=== PATIENT | female | born 1970 | race Caucasian/White ===

== ENCOUNTER 2019-04-11 14:05 | Outpatient (RCR) | payer OTHER, SELFPAY | END 2019-04-22 23:59 | LOC: NS 14:05 | PROVIDERS: Visit Provider Nurse Practitioner Primary Care | DX: E66.9 Obesity, unspecified (principal); Z68.33 Body mass index [BMI] 33.0-33.9, adult; Z71.3 Dietary counseling and surveillance | CPT/HCPCS: 97802 ==

== ENCOUNTER 2019-05-09 14:00 | Outpatient (RCR) | payer OTHER, SELFPAY | END 2019-05-22 23:59 | LOC: NS 14:00 | PROVIDERS: Visit Provider Nurse Practitioner Primary Care | DX: E66.9 Obesity, unspecified (principal); Z68.33 Body mass index [BMI] 33.0-33.9, adult; Z71.3 Dietary counseling and surveillance | CPT/HCPCS: 97803 ==

== ENCOUNTER 2019-06-06 09:00 | Outpatient (RCR) | payer OTHER, SELFPAY | END 2019-06-22 23:59 | LOC: NS 09:00 | PROVIDERS: Visit Provider Nurse Practitioner Primary Care | DX: E66.9 Obesity, unspecified (principal); Z68.33 Body mass index [BMI] 33.0-33.9, adult; Z71.3 Dietary counseling and surveillance | CPT/HCPCS: 97803 ==

== ENCOUNTER 2019-06-27 12:13 | Outpatient (RCR) | payer OTHER, SELFPAY | END 2019-06-27 23:59 | disposition home or self-care (01) | LOC: NS 12:13 | PROVIDERS: Visit Provider Nurse Practitioner Primary Care | DX: Z71.3 Dietary counseling and surveillance (principal); E66.9 Obesity, unspecified; Z68.33 Body mass index [BMI] 33.0-33.9, adult | CPT/HCPCS: 97803 ==

== ENCOUNTER 2019-11-01 07:30 | Day surgery (SDC) | payer OTHER, SELFPAY ==
[2019-11-01 08:07] VITALS: BP 117/75; PULSE 84; RESP 16; TEMP 36.6; O2SAT 97; BMI 35.3
[2019-11-01 08:09] LABS: Internal QC Validated? YES +Cl - CLEAR BKGD; Pregnancy, Urine Negative Negative
[2019-11-01] MEDS: Lactated Ringers 1,000 ML 100 ML IV (08:27)
--- NOTE | 2019-11-01 08:41 | H&P.OPEN ---
History of Present Illness Date of Admission: 11/01/19 The patient is a 49 year old F presents for screening colonoscopy. Patient is never had a previous colonoscopy. Denies any family history of colon cancer. Patient states she has bowel movements daily denies any blood. Denies any chronic abdominal pain/nausea/vomiting/reflux. Past Medical/Surgical History - Planned Operation Planned Operative Procedure/s: COLONOSCOPY Date of Operative Procedure: 11/01/19 Permit Signed: Yes S.O.S: No Is This Patient Having a Total Joint: No - Previous Hospitalizations/Surgeries HX Hospitalizations: No HX of Surgeries: GALLBLADDER. L ANKLE ARTHROSCOPY Any Problems With Anesthesia: No You/Your Family Experience Fever (Hyperthermia) With Anes: No Cholinesterase deficiency: No - Cardiovascular Hx Chest Pain within Last 2 months: No Hx of Irregular Heartbeat and/or Afib: No Hx Heart Attack: No Hx Congestive Heart Failure: No Hx Rheumatic Fever: No Hx Hypertension: No Hx Internal Defibrillator: No Hx Pacemaker: No Hx Cardiac Catheterization: No Hx Cardiac Surgery/Stents/Etc.: No Hx Stress Test: No HX Edema: No Hx Pain in Legs when Walking/Leg Cramps: No - Respiratory Chronic Cough: No HX of Shortness of Breath: No Hoarseness: No Hx Chronic Obstructive Pulmonary Disease (COPD): No Hx Asthma: No Hx Emphysema: No Hx Sleep Apnea: Yes CPAP: Yes BIPAP: No Hx Oxygen Use at Home: No Hx Respiratory Tract Infection/Cold (presently): No Result (for STOP score): Positive Hx Smoking: No Smoking Status: Never smoker - Gastrointestinal Hx Gastroesophageal Reflux: No Hx Gastrointestinal Disorders: No Hx Gastrointestinal Bleed: No Hx Ulcer: No Hx Hiatal Hernia: No Difficulty Chewing/Swallowing: No Recent Onset of Swallowing Problems: No Special diet followed at home: No Hx Unplanned Weight Loss of 20#: No HX Unplanned Weight Gain of 20#: No - Neurological Hx Seizures: No HX Syncope/Blackout Spells/Unconsciousness: No Hx CVA/Stroke: No Hx Transient Ischemic Attacks (TIA): No Hx Multiple Sclerosis: No Hx Parkinson's Disease: No Hx Head/Neck Injury: No Hx Headaches: No Hx Back Injury/Pain: No Recent Onset of Speech Difficulty: No Restless Legs: No Does patient have nerve stimulator: No - Blood Disorder Hx Leukemia: No Bleeding Tendencies: No Hx Deep Vein Thrombosis: No Hx High Cholesterol: No Blood Transmitted Disease: No Hx Hepatitis: No Hx Cirrhosis: No Hx Anemia: No Hx Blood Disorders: No - Reproduction : No Is Patient Lactating: No Hx Hysterectomy: No Hx Tubal Ligation: No Are You Post Menopause: No Pt Instructed Not To Have Any Sex From Now Until Surgery: No - Genitourinary Hx Renal Disease: No - Musculoskeletal Hx Arthritis: No Hx Rheumatoid Arthritis: No Hx Gout: No Recent Onset of an Orthopedic Problem: No - Endocrine Hx Diabetes: No Thyroid Disease: No Hx Steroid Therapy: No - Psycho/Social Hx Substance Use: No Hx Alcohol Use: No Hx Anxiety: Yes Hx Depression: Yes Mental Illness: No Hx Dementia: No - Miscellaneous Hx Cancer: No Recent Exposure to Contagious Disease: No Active MRSA: No Hx of C-Diff: No Any Loose Teeth: No Allergies Sulfa (Sulfonamide Antibiotics) Allergy (Verified 10/30/19 11:01) Itching - Discharge Is Pt Admitted From a Long-Term, or a Care Home: No Who Could Help: After D/C, Where Do you Plan to Go: Return Home - Physical Exam Vitals/I&O's: Vital Signs Temp Pulse Resp BP Pulse Ox 97.9 F 84 16 117/75 97 11/01/19 08:07 11/01/19 08:07 11/01/19 08:07 11/01/19 08:07 11/01/19 08:07 Oxygen Delivery Method Room Air Weight: 193 lb 5.526 oz Body Mass Index (BMI) 35.3 General: Alert, Oriented x3, Cooperative, No apparent distress HEENT: Atraumatic Lungs: Normal air movement Cardiovascular: Regular rate Abdomen: Soft, Non Tender, Non-Distended Extremities: No clubbing, No cyanosis, No edema Neurological: Cranial nerves II-XII grossly intact Psych/Mental Status: Normal Affect Laboratory Results 11/01/19 07:45: Urine Test Negative Current Medications Lactated Ringer's () 1,000 mls @ 100 mls/hr IV .Q10H KT Last Admin: 11/01/19 08:27 Dose: 100 mls/hr Documented by: Assessment/Plan 49-year-old female for screening colonoscopy Surgery Risks - Colonoscopy I discussed with the patient the risks of the procedure: Yes Risks Include but are not Limited To: Risks include but are not limited to: Bleeding, perforation requiring further surgery, inability to complete colonoscopy requiring barium enema. No further questions this time.
--- NOTE | 2019-11-01 08:45 | COLBX_PTH ---
PATIENT: KAYLYNN AGUILA LOC: EN U#:[id number] AGE/SX: 49/F ROOM: RE11/01/[address]: Dr. Vee Cornejo MD : 1970 BED: DIS: 11/01/2019 SPEC #: [id number] RECD: 11/01/19 10:42 STATUS: NEDA REMihir #: [id number] SOCORRO: 11/01/19 08:[address]: Vee Cornejo DEPT: SURGICAL PATHOLOGY RECD BY: Israel Duarte ENTERED: 11/01/19 12:06 SP TYPE: COLON BX OTHR DR: Dr. Ginger Agudelo MD Tissues: Ascending colon Procedures: Surgery Specimen Level IV HEADER OPERATION: Colonoscopy - open access (MAC) PRE-OP DIAGNOSIS: Screening TISSUE SUBMITTED: Ascending colon polyp biopsy MICROSCOPIC DIAGNOSIS Ascending colon polyp, biopsy: Fragments of hyperplastic polyp. AM:manpreet 11/02/19 MICROSCOPIC DESCRIPTION Slides are reviewed. GROSS DESCRIPTION Received in fixative is one container labeled with the patient's name and designated ascending colon polyp. The specimen consists of multiple irregular fragments of light viveros soft tissue that in aggregate measure 1 x 0.3 x 0.1 cm. The specimen is totally submitted in one cassette. / SJ:manpreet 11/01/19 TC:5 CPT: 20471
[2019-11-01 09:20] VITALS: BP 117/75; BP 95/58; PULSE 77; RESP 15; TEMP 36.1; O2SAT 98
--- NOTE | 2019-11-01 09:23 | OP.CCLET_ITS ---
11/01/2019 Ginger Agudelo [place] [id number] [place] [address] Re : Colonoscopy procedure for Awilda Jim Dear Dr. Agudelo This procedure was performed on Friday, November 01, 2019. My impressions and recommendations are as follows: Impressions : - Hemorrhoids found on perianal exam. - One less than 5 mm polyp in the ascending colon, removed with a cold biopsy forceps. Resected and retrieved. - The examination was otherwise normal. Recommendations : - Discharge patient to home. - Resume previous diet. - Continue present medications. - Await pathology results. - Repeat colonoscopy in 5 years for surveillance based on pathology results. My findings are described in the full procedure note, which is enclosed. If I can be of further assistance, please feel free to contact me at Doctor phone number(s): , Work: . Sincerely, MD Vee Damian MD 11/01/2019 9:22:38 AM This report has been signed electronically.
--- NOTE | 2019-11-01 09:23 | OP.COLON_ITS ---
Patient Name: Awilda Jim Procedure Date: 11/01/2019 8:49 AM Date of : 1970 Age: 49 Procedure: Colonoscopy Indications: Screening for colorectal malignant neoplasm Providers: Vee Cornejo MD Referring MD: Ginger Agudelo Medicines: Monitored Anesthesia Care Patient Profile: This is a 49 year old female. Last Colonoscopy: none. The patient's first colonoscopy is today. Complications: No immediate complications. Procedure: Pre-Anesthesia Assessment: - Prior to the procedure, a History and Physical was performed, and patient medications and allergies were reviewed. The patient's tolerance of previous anesthesia was also reviewed. The risks and benefits of the procedure and the sedation options and risks were discussed with the patient. All questions were answered, and informed consent was obtained. Prior Anticoagulants: The patient has taken no previous anticoagulant or antiplatelet agents. ASA Grade Assessment: II - A patient with mild systemic disease. After reviewing the risks and benefits, the patient was deemed in satisfactory condition to undergo the procedure. After I obtained informed consent, the scope was passed under direct vision. Throughout the procedure, the patient's blood pressure, pulse, and oxygen saturations were monitored continuously. The pediatric colonoscope was introduced through the anus and advanced to the cecum, identified by the appendiceal orifice, ileocecal valve and palpation. The colonoscopy was performed without difficulty. The patient tolerated the procedure well. The quality of the bowel preparation was good. Scope In: 8:55:21 AM Scope Withdrawal Time 0 hours 9 minutes 7 seconds Scope Out: 9:15:08 AM Total Procedure Duration Time 0 hours 19 minutes 47 seconds Findings: Hemorrhoids were found on perianal exam. A less than 5 mm polyp was found in the ascending colon. The polyp was sessile. The polyp was removed with a cold biopsy forceps. Resection and retrieval were complete. The exam was otherwise without abnormality. Impression: - Hemorrhoids found on perianal exam. - One less than 5 mm polyp in the ascending colon, removed with a cold biopsy forceps. Resected and retrieved. - The examination was otherwise normal. Recommendation: - Discharge patient to home. - Resume previous diet. - Continue present medications. - Await pathology results. - Repeat colonoscopy in 5 years for surveillance based on pathology results. Procedure Code(s): --- Professional --- 45741, PT, Colonoscopy, flexible; with biopsy, single or multiple CPT copyright 2017 [employer]. All rights reserved. The codes documented in this report are preliminary and upon enamel sprayer review may be revised to meet current compliance requirements. MD Vee Damian MD 11/01/2019 9:22:38 AM This report has been signed electronically. Number of Addenda: 0 Note Initiated On: 11/01/2019 8:49 AM
[2019-11-01 09:25] VITALS: BP 117/75; BP 95/62; PULSE 65; RESP 16; O2SAT 98
[2019-11-01 09:30] VITALS: BP 117/75; BP 98/64; PULSE 65; RESP 16; O2SAT 100
[2019-11-01 09:35] VITALS: BP 105/65; BP 117/75; PULSE 58; RESP 16; TEMP 36.8; O2SAT 100
[2019-11-01 10:04] VITALS: BP 117/75
== END 2019-11-01 10:07 | disposition home or self-care (01) ==
LOC: EN 07:31 → AC 07:32
PROVIDERS: Anesthesiology; PCP Family Medicine; Referring Provider Family Medicine; Visit Provider Surgery
PROC: 0DJD8ZZ Inspection of Lower Intestinal Tract, Via Natural or Artificial Opening Endoscopic (ICD-10-PCS; CPT 45378; principal; 2019-11-01 08:40)
DX: Z12.11 Encounter for screening for malignant neoplasm of colon (principal); D12.2 Benign neoplasm of ascending colon; K64.9 Unspecified hemorrhoids; Z88.2 Allergy status to sulfonamides; F32.9 Major depressive disorder, single episode, unspecified; F41.9 Anxiety disorder, unspecified
CPT/HCPCS: 45380; 81025; 88305; J7120; J2405

== ENCOUNTER → 2020-05-01 10:36 | Outpatient (CLI) | payer OTHER, SELFPAY | PROVIDERS: PCP Family Medicine; Referring Provider Family Medicine; Visit Provider Family Medicine | DX: Z20.828 Contact with and (suspected) exposure to other viral communicable diseases (principal) | CPT/HCPCS: 87635; C9803; U0003 ==

== ENCOUNTER → 2020-05-14 15:28 | Outpatient (CLI) | payer OTHER, SELFPAY ==
[2020-05-14 15:55] LABS: Hematocrit 41.4 % (37-47)
[2020-05-14 16:49] LABS: Follicle Stimulating Hormone 58.4 mIU/mL; Luteinizing Hormone 22.6 mIU/mL; Prolactin 5.5 ng/mL; Thyroid Stim Hormone (TSH) 3.03 uIU/mL (0.358-3.74)
[2020-05-14 22:39] LABS: Progesterone Level < 0.21 ng/mL (See Comment)
[2020-05-18 08:12] LABS: Testosterone Free 1.2 pg/mL (0.0-4.2)
== END ==
PROVIDERS: PCP Family Medicine; Visit Provider Student in an Organized Health Care Education/Training Program
DX: N95.1 Menopausal and female climacteric states (principal)
CPT/HCPCS: 36415; 82306; 83001; 83002; 84144; 84146; 84402; 84443; 85014; 85018

== ENCOUNTER → 2020-05-28 14:41 | Outpatient (CLI) | payer OTHER, SELFPAY ==
--- NOTE | 2020-05-28 14:10 | EMB_PTH ---
PATIENT: KAYLYNN AGUILA [facility] U#:[id number] AGE/SX: 55/F ROOM: RE05/28/[address]: Dr. Rosa Maria Hancock DO : 1970 BED: DIS: SPEC #: [id number] RECD: 05/28/20 15:52 STATUS: NEDA REQ #: [id number] SOCORRO: 05/28/20 14:[address]: Rosa Maria Hancock DEPT: SURGICAL PATHOLOGY RECD BY: Cameron Oconnell ENTERED: 05/29/20 10:20 SP TYPE: ENDOM BX/C SHARON DR: Dr. Ginger Agudelo MD Tissues: Endometrium, NOS Procedures: Surgery Specimen Level IV HEADER OPERATION: Endometrial biopsy PRE-OP DIAGNOSIS: Abnormal uterine bleeding; irregular menses TISSUE SUBMITTED: Endometrial biopsy MICROSCOPIC DIAGNOSIS Endometrium, biopsy: Strips of benign superficial glandular tissue and blood. Rare fragment of benign endometrium, weakly proliferative. AM:manpreet 05/30/20 MICROSCOPIC DESCRIPTION Slides are reviewed. GROSS DESCRIPTION Received in fixative is one container labeled with the patient's name and designated endometrial biopsy. The specimen consists of multiple irregular fragments of red-viveros soft tissue that in aggregate measure 2 x 2 x 0.1 cm. The specimen is totally submitted in one cassette. / AM:manpreet 05/29/20 TC:5 CPT: 26246
== END ==
PROVIDERS: PCP Family Medicine; Visit Provider Student in an Organized Health Care Education/Training Program
DX: N93.9 Abnormal uterine and vaginal bleeding, unspecified (principal); N92.6 Irregular menstruation, unspecified
CPT/HCPCS: 88305

== ENCOUNTER → 2022-05-14 | Outpatient (CLI) | payer OTHER, SELFPAY ==
[2022-05-14 12:20] LABS: Absolute Lymphocyte Count 2.36 X10^3/uL (0.83-4.51); Absolute Neutrophil Count 5.3 X10^3/uL (2.0-7.7); Basophil# 0.09 X10^3/uL; Basophil% 1.1 % (0-1); Eosinophil# 0.21 X10^3/uL; Eosinophils% 2.5 % (0-5); Hematocrit 43.6 % (37-47); Hemoglobin 14.7 g/dL (12.0-15.0); Lymphocyte # 2.36 X10^3/ul (0.83-4.51); Lymphocyte % 27.8 % (19-41); Mean Corp Hgb Conc 33.7 g/dL (32-36); Mean Corpuscular Hgb 30.8 pg (27.0-32.0); Mean Corpuscular Volume 91.4 fL (81-99); Mean Platelet Vol. 9.5 fl (6.2-12.0); Monocyte# 0.52 X10^3/uL; Monocyte% 6.1 % (0-10); NRBC Flagged by Analyzer 0 % (0-5); Neutrophil # 5.27 X10^3/uL (2.7-7.7); Neutrophil % 61.9 % (47-70); Platelet Count 271 K/mm3 (150-450); RBC Distribution Width CV 13.2 % (11.6-14.6); RBC Distribution Width SD 44.6 fl (35.1-43.9); Red Blood Count 4.77 M/mm3 (4.2-5.4); White Blood Count 8.5 K/mm3 (4.4-11.0)
[2022-05-14 12:35] LABS: ALB/GLOB Ratio 0.9 RATIO (0.9-2.4); AST(SGOT) 89 U/L (15-37); Alanine Aminotransfer ALT/SGPT 122 U/L (13-56); Albumin, Serum 3.5 g/dL (3.2-5.0); Alkaline Phosphatase 128 U/L (45-117); Anion Gap 9 (5-15); BUN 15 mg/dL (7-18); BUN/Creat Ratio 18.5 RATIO (10-20); Calcium,Total 9.2 mg/dL (8.5-10.1); Chloride 107 mmol/L (98-107); Cholesterol 222 mg/dL (200); Creatinine, Serum 0.81 mg/dL (0.55-1.02); EST Glomerular Filtration Rate 79 mL/min (>60); Est Glom Filt Rate - Afr Amer 95 mL/min (>60); Globulin 3.7 g/dL (2.2-4.2); Glucose 131 mg/dL (74-106); High Density Lipoprotein 40 mg/dL; Potassium 3.9 mmol/L (3.5-5.1); Protein, Total 7.2 g/dL (6.4-8.2); Sodium Level 139 mmol/L (136-145); Triglycerides 264 mg/dL; Very Low Density Lipoprotein 53 mg/dL (5-40)
[2022-05-14 14:59] LABS: Hemoglobin A1c 6.4 % (3.8-5.6)
== END | disposition home or self-care (01) ==
PROVIDERS: PCP Family Medicine; Referring Provider Family Medicine; Visit Provider Family Medicine
DX: Z00.00 Encounter for general adult medical examination without abnormal findings (principal); R78.9 Finding of unspecified substance, not normally found in blood
CPT/HCPCS: 36415; 80053; 80061; 83036; 85025

== ENCOUNTER → 2025-07-05 | Outpatient (CLI) | payer BC, SELFPAY ==
--- NOTE | 2025-07-05 07:51 | CT_ITS ---
PROCEDURE: LIMITED CHEST CT CARDIAC ONLY 07/05/2025 REASON FOR EXAM: CHEST PAIN TECHNIQUE: Procedure Code: [id number] Modality: CT Procedure: LIMITED CHEST CT CARDIAC ONLY CONTRAST: None. One or more dose reduction techniques were used (e.g., Automated exposure control, adjustment of the mA and/or kV according to patient size, use of iterative reconstruction technique). RADIATION DOSE SUMMARY: CTDlvol: 12.19 mGy DLP: 195.04 mGycm COMPARISON: None FINDINGS: The heart is nonenlarged. No coronary artery calcification is seen. The visualized portions of the lungs are unremarkable. CT/Limited Chest CT Cardiac Only IMPRESSION: No coronary artery calcification. Reading Location: [place] [id number]
--- NOTE | 2025-07-06 09:27 | CA.SCORE ---
Calcium Scoring Date of Study:: 07/05/25 Indications Indications: Chest pain Coronary Calcium Scoring: High-resolution Computed Tomographic imaging of the chest was performed on [07/05/2025], with particular attention paid to the coronary arteries. Images from the examination were analyzed for the presence and extent of coronary artery calcification , using coronary calcium quantification software. The patient tolerated the procedure well and there were no complications. The results of the coronary calcification analysis are provided below. Findings Coronary Artery Left Main (LM): 0 Left Anterior Descending (LAD): 0 Left Circumflex (LCX): 0 Right Coronary Artery (RCA): 0 Total Agatston Score: 0 Percentile Rankin Calcium Scoring Interpretation: Different methods to categorize the overall amount of coronary plaque. Overall amount CAC SIS Visual of coronary plaque P1 Mild -100 <2 1-2 vessels with mild amount of plaque P2 Moderate 101-300 3-4 1-2 vessels with moderate amount, 3 vessels with mild amount of plaque P3 Severe 301-999 5-7 3 vessels with moderate amount, 1 vessel with severe amount of plaque P4 Extensive >1000 >8 2-3 vessels with severe amount of plaque Conclusion: No atherosclerotic plaquing noted.
== END | disposition home or self-care (01) ==
PROVIDERS: PCP Family Medicine; Referring Provider Family Medicine; Visit Provider Family Medicine
DX: R07.9 Chest pain, unspecified (principal)
CPT/HCPCS: 75571; 76380